=== PATIENT | female | born 1990 | race Caucasian/White ===

== ENCOUNTER 2018-01-18 06:02 | Inpatient (IN) | payer OTHER ==
--- NOTE | 2018-01-17 19:11 | History & Physical ---
General Information and HPI MD Statement: I have seen and personally examined HUNTER CARBONE and documented this H&P. The patient is a 27 year old female at [38] weeks and [2] days gestation who presented with a chief complaint of [repeat section with possible focal accreta]. History of Present Illness: This patient is a 27-year-old 3 para 2 EDC 01/30/2018 by early ultrasound who presents to labor and delivery today for a planned elective repeat section. 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 Dave Jay on the [facility] approximately 1 month ago. He is not certain that this is a focal accreta and did not order an MRI. However, she will be taken for blood loss and numbness Yosef is aware of the as a last resort hysterectomy may be performed. Allergies/Medications Allergies: Coded Allergies: NO KNOWN ALLERGIES (01/05/16) Home Med list Cephalexin (Keflex) 500 MG CAPSULE 1 CAP PO 4 TIMES/DAY INFECTION Docusate Sodium 100 MG CAPSULE 100 MG PO BID PRN STOOL SOFTENER Ibuprofen 800 MG TABLET 800 MG PO Q6P PRN PAIN SCALE 4-6 (MODERATE) Oxycodone HCl/Acetaminophen (Percocet 5-325 MG Tablet) 1 EACH TABLET 1 TAB PO Q4P PRN PAIN SCALE 7-8 Past History round boner History : 3 Para: 2 Last Menstrual Period: Past round boner History: none (Thank you), c/sx2 ( Fabien martin notes case in the m) Surgical History Pertinent Surgical History: Review of Systems Review of Systems Constitutional: Reports: no symptoms. EENTM: Reports: no symptoms. Cardiovascular: Reports: no symptoms. Respiratory: Reports: no symptoms. GI: Reports: no symptoms. Genitourinary: Reports: no symptoms. Musculoskeletal: Reports: no symptoms, see HPI. Skin: Reports: no symptoms. Neurological/Psychological: Reports: no symptoms. Hematologic/Endocrine: Reports: no symptoms. Immunologic/Allergic: Reports: no symptoms. All Other Systems: Reviewed and Negative Exam & Diagnostic Data Obstetric Exam Wgt Gained During : 35 pounds Pelvimetry: Gynecoid Dilation (cm): 0 Effacement (%): 0 Station: -2 Membranes: intact Fluid: unknown Fundal Height (cm): 40 Multiple Gestation? No Contractions: None Infant #1 - FHR Baseline: 142 Category: 1 Estimated Weight: 7 pounds Presentation: Cephalic Patient for Induction? No Physical Exam: HEENT: Normocephalic atraumatic Chest: Clear to auscultation bilaterally Cardiovascular: Normal S1-S2 Abdomen: Gravid, cephalic, estimated weight 7 pounds Cervix: Long and closed posterior Extremities: No clubbing cyanosis or edema Neurologic: Nonfocal Labs Blood Type & Rh: O+ Antibody Screen: Negative Hct/Hgb & Platelets #1: 38, 13th, 374 Hct/Hgb & Platelets #2: Not done Rubella: Immune VDRL #1: Negative VDRL #2: Not done HbsAg: Negative HIV #1: Negative HIV #2 Not done 1 Hr PG: Not done Group B Strep: Negative Initial Ultrasound: Within normal limits Anatomy Ultrasound: Within normal limits Ultrasound for EFW: 6-1/2 pounds possible focal accreta Genetic Testing: Maternal positive first set of Cystinosis FOB not carrier Assessment/Plan Assessment/Plan: Review 2, possible focal accreta Plan: Repeat section, monitor closely for blood loss As Ranked By This Provider Problem List: 1. Previous section Core Measures Venous Thromboembolism VTE Risk Factors Surgery No Mechanical VTE Prophylaxis d/t N/A MechProphylax Ordered No VTE Pharm Prophylaxis d/t Bleeding (Active)
[~2018-01-18] VITALS: Ht 157.5 cm; Wt 82.6 kg
[~2018-01-18 06:02] MED LIST: DOCUSATE SODIU100 M3 PO; IBUPROFEN800 M1 PO; KEFLEX500 M1 PO; PERCOCET 5-3251 EACH PO
--- NOTE | 2018-01-18 09:44 | Operative Report ---
Operative/Inv Procedure Report Surgery Date: 01/18/18 Name of Procedure: Repeat section Pre-Operative Diagnosis: Review , possible focal placenta accreta Post-Operative Diagnosis: Same Estimated Blood Loss: 600 mL Surgeon/Mercerizing Range Controller: Joseph Duffy MD,Donavan Forrest M.D. Anesthesia: spinal Operative/Procedure Note Note: The patient is brought to the operating room and placed on the OR table in the sitting position where she underwent spinal anesthetic without complication. Betadine boots were placed and activated and the patient was repositioned into dorsal supine. A block was placed under her right side angling her to monitor her left. A Moore catheter was placed draining clear yellow urine. The abdomen was prepped and draped in usual sterile fashion and tested. A Pfannenstiel skin incision was made with the scalpel and taken down to the layer of the fascia. The fascia was nicked in the midline and extended bilaterally. The underlying rectus muscles were off the fascia sharply. The peritoneal cavity was entered sharply and extended bilaterally. A [place] bladder blade was inserted to protect the bladder from the operative field. A small lower segment window was noted and this was opened using a scalpel. Membranes were ruptured revealing clear fluid a liveborn female infant was then delivered atraumatically and handed off to the waiting pediatricians. The placenta was then manually extracted intact. The uterus was exteriorized and wiped clean with a wet lap sponge. The uterine incision was closed with 2 layers the second imbricating the first of 0 Polysorb. The abdomen and pelvis were copiously irrigated and uterus is placed back into the abdominal cavity. Suture line was once again visualized there was some bleeding from the left angle. A dyqnli-le-bakps 0 Polysorb was placed here for good hemostasis. The rectus muscles were then reapproximated with a mattress suture of 0 Polysorb. Fascia was closed using #1 suture Polysorb in a running nonlocking fashion. Subcutaneous tissues were irrigated and coagulated were needed. The skin was closed using justin a dry sterile dressing was then applied to the wound. The fundus was expressed patient was sent to recovery in good condition. All needle, sponge, and inspected counts were correct at the end of procedure 4.
--- NOTE | 2018-01-18 09:46 | Labor & Delivery Summary ---
Delivery Summary Section: Section: repeat # (2) Placenta: Placenta: normal, 3 vessel, abnormal Anesthesia: spinal Baby's Weight: 6/8 Apgars - 1 Min: 9 Apgars - 5 Min: 9 Additional Comments: No clinical evidence of accreta with the specimen however this will be sent to pathology for verification
[2018-01-19 05:12] VITALS: BP 98/54
[2018-01-19 08:13] LABS: ABSOLUTE BASOPHIL COUNT 0 /CUMM (0.0-0.2); ABSOLUTE EOSINOPHIL COUNT 0.4 /CUMM (0.0-0.7); ABSOLUTE GRANULOCYTE CT 7.3 /CUMM (1.4-6.5); ABSOLUTE LYMPH COUNT 2.4 /CUMM (1.2-3.4); ABSOLUTE MONOCYTE COUNT 0.9 /CUMM (0.10-0.60); BASOPHIL % 0.3 % (0.0-2.0); EOSINOPHIL % 3.9 % (0-5); GRANULOCYTE % 66.2 % (42.2-75.2); HEMATOCRIT 28.6 % (37-47); MEAN CORPUSCULAR HGB 30.1 PG (27.0-31.0); MEAN CORPUSCULAR HGB CONC 33.8 G/DL (33.0-37.0); MEAN CORPUSCULAR VOLUME 89.2 FL (81.0-99.0); MEAN PLATELET VOLUME 8.5 FL (7.4-10.4); PLATELET COUNT 273 /CUMM (130-400); RBC DISTRIBUTION WIDTH 13.4 % (11.5-14.5); RED BLOOD CELL CT 3.21 /CUMM (4.20-5.40)
--- NOTE | 2018-01-19 08:48 | PN- Post Delivery/GYN ---
Subjective Subjective: had shoulder pain last pm Review of Systems: no flatus Objective Last 24 Hrs of Vital Signs/I&O Vital Signs Date Time Temp Pulse Resp B/P B/P Pulse O2 O2 Flow FiO2 Mean Ox Delivery Rate 01/19 0512 98/54 Physical Exam: drsg dry abd soft, NT Ext NT Assessment/Plan Assessment/Plan s/p c/s pod1 stable d/c bland increase activitiy advance diet Problem List: 1. S/P section
--- NOTE | 2018-01-20 17:11 | PN- Post Delivery/GYN ---
Subjective Subjective: NO C/O Review of Systems: NEG Objective Last 24 Hrs of Vital Signs/I&O VSS Physical Exam: FF INCISION CDI Assessment/Plan Assessment/Plan S/P RCS POD2 STABLE DISCHARGE TOMORROW
[2018-01-20] MEDS ORDERED: PERCOCET 5-3251 EACH PO (17:17)
[2018-01-20] MEDS ORDERED: IBUPROFEN800 M1 PO (17:17)
[2018-01-20] MEDS ORDERED: DOCUSATE SODIU100 M3 PO (17:17)
== END 2018-01-21 10:15 | DRG 540 ==
LOC: GNO 06:02
PROVIDERS: Obstetrics & Gynecology
PROC: 10D00Z1 Extraction of Products of Conception, Low, Open Approach (ICD-10-PCS; principal; 2018-01-18)
DX: O34.211 Maternal care for low transverse scar from previous cesarean delivery (principal); N85.8 Other specified noninflammatory disorders of uterus; Z3A.38 38 weeks gestation of pregnancy; Z37.0 Single live birth
CPT/HCPCS: GNOS; 36415; 80307; 81001; 87086; 87389; J0131; J0690; J1200; J1885; J2210; J2550; J7120